=== PATIENT | male | born 1995 | race Caucasian/White ===

== ENCOUNTER 2020-01-23 14:38 | Outpatient (CLI) | payer BC, SELFPAY ==
--- NOTE | 2020-01-23 14:49 | US_ITS ---
WS: [id number] TESTICULAR ULTRASOUND HISTORY: TESTICULAR PAIN COMPARISON: None available. TECHNIQUE: Real-time and color Doppler imaging or utilized to perform a testicular ultrasound. Right testicle: 4.9 cm x 4.2 cm x 2.0 cm. Normal size and echogenicity. No mass or torsion. Normal color Doppler is present throughout. Systolic and diastolic velocities are both present. Small hydrocele. Right epididymis: Normal epididymis with no increased vascularity. Small spermatocele. Left testicle: 5.6 cm x 3.2 cm x 2.5 cm. Normal size and echogenicity. No mass or torsion. Normal color Doppler is present throughout. Systolic and diastolic velocities are both present. Small hydrocele. Left epididymis: Normal epididymis with no increased vascularity. Small spermatocele. US/US scrotum [id number] IMPRESSION: 1. No testicular mass or torsion. 2. Small bilateral hydroceles and small epididymal head spermatoceles.
== END 2020-01-23 14:39 | disposition home or self-care (01) ==
LOC: RAD 14:43
PROVIDERS: Family Provider Pediatrics Adolescent Medicine; Visit Provider Nurse Practitioner Family
DX: N50.819 Testicular pain, unspecified (principal); N43.3 Hydrocele, unspecified; N43.40 Spermatocele of epididymis, unspecified
CPT/HCPCS: 76870